=== PATIENT | male | born 1995 | race Caucasian/White ===

== ENCOUNTER 2017-01-05 19:04 | Emergency (ER) | payer BC ==
[2017-01-05] MEDS ORDERED: NS 0.9% 1000 ML* 1,000 ML IV ONE (19:31)
[2017-01-05] MEDS ORDERED: Ketorolac INJ* 30 MG/ML 1 ML VIAL IV PUSH ONE (19:31)
--- NOTE | 2017-01-05 19:37 | ED ---
Throat Pain/Nasal Congestion - HPI Summary HPI Summary: Pt here w/ ST x 5 days. Started as mild irritation associated w/ fever, chills x 3 days. Has mild nasal congestion - no quinn cough. Throat pain as been getting progressively worse - eating less and less each day to the point where he couldn't tolerate chicken broth today. Has not been able to drink well either. Was using ibuprofen at first but pain is still intolerable. Denies current fever, chills, N/V/D, rash, SOB, ab pain. No known h/o strep nor mono. Has had salivary contact recently. Lives in a frat house - no known sick contacts. Was seen at [facility] yesterday and rapid strep neg there. Takes meds daily for anxiety - still able to take these throughout course of illness. - History of Current Complaint Chief Complaint: EDThroatPain Time Seen by Provider: 01/05/17 19:17 Hx Obtained From: Patient - Allergies/Home Medications Allergies/Adverse Reactions: Allergies Allergy/AdvReac Type Severity Reaction Status Date / Time No Known Allergies Allergy Verified 08/07/15 07:44 PMH/Surg Hx/FS Hx/Imm Hx Previously Healthy: Yes Endocrine/Hematology History: Denies: Autoimmune Disease Respiratory History: Denies: Hx Asthma Psychiatric History: Reports: Hx Anxiety - SSRI, hydroxyzine, Hx Depression Denies: Hx Eating Disorder, Hx of Violent Episodes Against Others Infectious Disease History: No Infectious Disease History: Denies: History Other Infectious Disease - strep, mono, Traveled Outside the [place] in Last 30 Days - Family History Known Family History: Positive: None - Social History Occupation: Student Lives: With Family - roommates Alcohol Use: Weekly Substance Use Type: Reports: Cocaine - has tried - not recently, Marijuana - occasionally - not recently Substance Use Comment - Amount & Last Used: last week Hx Tobacco Use: No Smoking Status (MU): Never Smoked Tobacco Review of Systems Constitutional: Other - see HPI Eyes: Negative ENT: Other - see HPI Positive: Sore Throat. Negative: Dental Pain, Ear Ache, Nasal Discharge Negative: Chest Pain Negative: Shortness Of Breath, Cough Negative: Abdominal Pain, Vomiting, Diarrhea, Nausea Positive: no symptoms reported Musculoskeletal: Negative Skin: Negative Negative: Rash Negative: Headache Positive: Anxious All Other Systems Reviewed And Are Negative: Yes Physical Exam Triage Information Reviewed: Yes Vital Signs On Initial Exam: Initial Vitals Temp Pulse Resp BP Pulse Ox 99.1 F 98 18 153/113 100 01/05/17 19:06 01/05/17 19:06 01/05/17 19:06 01/05/17 19:06 01/05/17 19:06 Vital Signs Reviewed: Yes Appearance: Positive: Well-Appearing, No Pain Distress - at rest - appears to have dysphagia Skin: Positive: Warm, Dry - no rash observed Head/Face: Positive: Normal Head/Face Inspection - sinuses NTTP Eyes: Positive: Normal, EOMI, Conjunctiva Clear. Negative: Conjunctiva Inflammed, Discharge ENT: Positive: Hearing grossly normal, Pharynx normal - handling secretions well , TMs normal, Tonsillar swelling, Tonsillar exudate - Rt > Lt. Negative: Nasal congestion, Nasal drainage, TM bulging, TM dull, Trismus Dental: Negative: Abscess @ Neck: Positive: Supple, Tenderness @ - Rt anterior neck w/ edema Respiratory/Lung Sounds: Positive: Clear to Auscultation, Breath Sounds Present. Negative: Rales, Rhonchi, Stridor, Wheezes Cardiovascular: Positive: Normal, RRR, S1, S2. Negative: Murmur, Rub Abdomen Description: Positive: No Organomegaly, Soft, Other: - mild LUQ TTP - no rebounding. Negative: Splenomegaly Bowel Sounds: Positive: Present Musculoskeletal: Positive: Normal, Strength/ROM Intact Neurological: Positive: Normal, Sensory/Motor Intact, Alert, Oriented to Person Place, Time, CN Intact II-III Psychiatric: Positive: Anxious Diagnostics - Vital Signs Vital Signs Temp Pulse Resp BP Pulse Ox 01/05/17 19:06 99.1 F 98 18 153/113 100 - Laboratory Lab Statement: Any lab studies that have been ordered have been reviewed, and results considered in the medical decision making process. Re-Evaluation - Re-Evaluation First Eval Change: Improved - improvement s/p IVF and toradol Second Eval Change: Improved - s/p magic mouthwash - drinking water well - reports he's relieved to be drinking water EENT Course/Dx - Course Course Of Treatment: Pt reports 5 days h/o worsening pharyngitis. Initial rapid strep yesterday was neg. Neg again today. Cx sent to confirm. Randall neg. Admits he's been run down w/ school etc as of late. Pt had relief w/ toradol, IV fluids and magic mouthwash. Feels comfortable going home w/ magic mouthwash and ibuprofen. Plans to continue fluids and will rest. Understands danger s/sx of when to return to ED. Discussed option to start anbx and/or waiting for strep cx - pt decided to wait for strep cx to see if he needs anbx or not. Agree w/ plan. He is aware of dangers of taking anbx unnecessarily as well as prolonging strep infection - will watch for these sx as well (chest pain, hematuria, etc although appears to be viral at this time). - Diagnoses Provider Diagnoses: Acute viral pharyngitis Discharge - Discharge Plan Condition: Stable Disposition: HOME Patient Education Materials: Pharyngitis (ED) Forms: *School Release Referrals: RIAN Costello [Primary Care Provider] - Additional Instructions: Continue saline throat gargles and magic mouthwash as directed - Swish, gargle and swallow 5-10 mL every 6 hours as needed for pain Continue ibuprofen 600-800mg every 6-8 hours as needed for pain - you may alternate with acetaminophen 650mg every 6 hours as needed as well Drink plenty of fluids and avoid acidic beverages, broths, etc Follow-up with Rian or if worse, return to ED
[2017-01-05] MEDS ORDERED: Magic M W2 Ben/Maal/Nyst/Lido* 240 ML MOUTHWASH (alt formulation) SWISH SWAL ONE (20:17)
[2017-01-05 20:39] LABS: Mono Internal Control QC Line Present
[2017-01-05] MEDS ORDERED: Magic M W2 Ben/Maal/Nyst/Lido* 240 ML MOUTHWASH (alt formulation) SWISH SWAL SCH (21:00)
[2017-01-05 21:04] VITALS: BP 132/76
== END 2017-01-05 21:19 | disposition home or self-care (01) ==
LOC: ED 19:04
DX: F41.9 Anxiety disorder, unspecified (principal); J02.9 Acute pharyngitis, unspecified
CPT/HCPCS: 36415; 86308; 87070; 87651; 96374; 99283; A9270-GY; J1885